=== PATIENT | female | born 1990 | race African-American/Black ===

== ENCOUNTER 2024-12-17 15:09 | Emergency (ER) | payer MEDICAID ==
[~2024-12-17] VITALS: Ht 172.7 cm; Wt 80.0 kg
[2024-12-17 15:14] VITALS: O2SAT 98
[2024-12-17 15:55] LABS: BASOPHILS % 0.5 % (0.0-2.0); EOSINOPHILS % 7.1 % (0.0-5.0); HEMATOCRIT. 38.5 % (36.0-48.0); LYMPHOCYTES % 23.4 % (20.0-50.0); MEAN CORPUSCULAR HEMOGLOBIN 29.6 pg (28.0-32.0); MEAN CORPUSCULAR HGB CONC 33.8 g/dL (31.0-37.0); MEAN CORPUSCULAR VOLUME 87.5 fL (81.0-99.0); MEAN PLATELET VOLUME 8.8 fl (7.4-10.4); MONOCYTES % 9.8 % (2.0-8.0); NEUTROPHILS % 59.2 % (40.0-76.0); PLATELET 240 x1000/uL (130-400); RED CELL DISTRIBUTION WIDTH 13.2 % (11.6-14.6); WHITE BLOOD COUNT 8.3 x1000/uL (4.5-11.0)
[2024-12-17 15:57] LABS: CHLORIDE 111 mEq/L (98-107); POTASSIUM 3.8 mEq/L (3.5-5.1); SODIUM 142 mEq/L (136-145)
[2024-12-17 15:58] LABS: CARBON DIOXIDE 24 mEq/L (21-32)
[2024-12-17 15:59] LABS: CALCIUM 9.5 mg/dL (8.7-10.4)
[2024-12-17 16:03] LABS: CREATININE 0.8 mg/dL (0.6-1.0); GLUCOSE 126 mg/dL (70-105)
[2024-12-17 16:04] LABS: UREA NITROGEN BLOOD 13 mg/dL (9-23)
[2024-12-17] MEDS ORDERED: ONDA-239 PO (17:15)
[2024-12-17 17:36] VITALS: BP 127/61; PULSE 82; RESP 16; TEMP 36.9; O2SAT 98
== END 2024-12-17 17:46 | disposition home or self-care (01) ==
LOC: ER 15:09
DX: R55 Syncope and collapse (principal); R11.2 Nausea with vomiting, unspecified; F17.200 Nicotine dependence, unspecified, uncomplicated
CPT/HCPCS: 80048; 83690; 85025; 36415; 93005; 99284; Z7610